=== PATIENT | male | born 1985 | race Hispanic/Latino ===

== ENCOUNTER 2017-07-04 16:19 | Emergency (ER) | payer OTHER ==
[2017-07-04] MEDS ORDERED: FLUORESCEIN OPHTH 1 MG STRIP As Ordered (17:44)
[2017-07-04] MEDS: FLUORESCEIN OPHTH 1 MG STRIP OS (17:45)
== END 2017-07-04 19:00 | disposition home or self-care (01) ==
LOC: M ED 16:19
DX: S05.12XA Contusion of eyeball and orbital tissues, left eye, initial encounter (principal); W27.8XXA Contact with other nonpowered hand tool, initial encounter; Y92.59 Other trade areas as the place of occurrence of the external cause; Y99.0 Civilian activity done for income or pay
CPT/HCPCS: 99283

== ENCOUNTER 2020-08-16 07:40 | Emergency (ER) | payer OTHER ==
[~2020-08-16] VITALS: Ht 154.9 cm; Wt 63.0 kg
[~2020-08-16 07:40] MED LIST: TOBRSUS41 OS
[2020-08-16 08:06] LABS: BASO # 0.1 10^3/uL (0.0-0.2); EOS # 0.2 10^3/uL (0.0-0.5); EOS % 2.6 % (0.0-3.0); HEMATOCRIT 46.6 % (42.0-52.0); HEMOGLOBIN 15.5 g/dl (13.5-17.5); LYMPH % 27.9 % (24.0-44.0); MEAN CORPUSCULAR HEMOGLOBIN 30.3 pg (27.0-33.0); MEAN CORPUSCULAR HGB CONC 33.3 g/dl (32.0-36.5); MEAN CORPUSCULAR VOLUME 91.2 fl (80.0-96.0); MONO # 0.6 10^3/uL (0.0-0.8); MONO % 8.2 % (2.0-8.0); NEUTROPHILS # 4.4 10^3/uL (1.5-8.5); NEUTROPHILS % 59.9 % (36.0-66.0); PLATELET COUNT, AUTOMATED 265 10^3/uL (150-450); RED BLOOD COUNT 5.11 10^6/uL (4.30-6.10); WHITE BLOOD COUNT 7.3 10^3/uL (4.0-10.0)
--- NOTE | 2020-08-16 08:14 | REP ---
INDICATION: CHEST PAIN COMPARISON: None. TECHNIQUE: Portable AP view of the chest FINDINGS: The mediastinum and cardiac silhouette are within normal limits for portable technique. The lung arora are clear without acute consolidation, effusion, or pneumothorax. Skeletal structures are intact. IMPRESSION: No acute cardiopulmonary process appreciated. <Electronically signed by Henry Tamez > 08/16/20 [id number]
[2020-08-16] MEDS ORDERED: GI COCKTAIL 50ML BTL(HYOSCYAMINE/MAALOX/LIDOCAINE VISCOUS)(1:3:1) PO ONE (08:15)
[2020-08-16 08:23] LABS: BLOOD UREA NITROGEN 16 MG/DL (7-18); CALCIUM LEVEL 8.9 MG/DL (8.5-10.1); CARBON DIOXIDE LEVEL 27 MEQ/L (21-32); CHLORIDE LEVEL 107 MEQ/L (98-107); CK-MB VALUE MASS < 1.0 NG/ML (<3.6); CPK CREATINE PHOSPHOKINASE 190 U/L (39-308); CREATININE FOR GFR 1.05 MG/DL (0.70-1.30); GLOMERULAR FILTRATION RATE > 60.0 (>60); GLUCOSE, FASTING 101 MG/DL (70-100); MB/CK RELATIVE INDEX 0.53 (< OR =4); POTASSIUM SERUM 3.9 MEQ/L (3.5-5.1); SODIUM LEVEL 138 MEQ/L (136-145); TROPONIN I < 0.02 NG/ML (< 0.10)
[2020-08-16 08:40] LABS: ALBUMIN 4.4 GM/DL (3.2-5.2); BILIRUBIN,DIRECT 0.1 MG/DL (0.0-0.2); BILIRUBIN,TOTAL 0.5 MG/DL (0.2-1.0); TOTAL PROTEIN 7.9 GM/DL (6.4-8.2)
[2020-08-16 09:07] LABS: RSV AMPLIFICATION NEGATIVE (NEGATIVE)
[2020-08-16] MEDS ORDERED: ISOVUE-370 76% 100ML VIAL As Ordered ONE (10:45)
[2020-08-16] MEDS ORDERED: KETOROLAC 30 MG/ML 1ML VIAL IV ONE (11:00)
--- NOTE | 2020-08-16 11:09 | REP ---
INDICATION: chest pain COMPARISON: None. TECHNIQUE: Axial contrast enhanced images from the thoracic inlet to the upper abdomen using pulmonary embolus technique with multiplanar re-formations. 75 ml Isovue 370 intravenous contrast material administered without complication. This CT examination was performed using the following dose reduction techniques: Automated exposure control, adjustment of mA and/or kv according to the patient's size, and use of iterative reconstruction technique. FINDINGS: Satisfactory enhancement of the pulmonary vasculature is achieved and no filling defects are identified to suggest pulmonary embolus. Further evaluation of the mediastinum demonstrates normal thoracic aorta, heart and pericardium. The bilateral lung arora are well aerated and clear without consolidation pleural effusion or pneumothorax. Tracheobronchial tree is patent. No nodule or mass lesion is identified. No adenopathy noted. Surrounding musculoskeletal structures intact IMPRESSION: No evidence for pulmonary embolus. No acute mediastinal or pleural parenchymal process. <Electronically signed by Henry Tamez > 08/16/20 [id number]
[2020-08-16 11:42] LABS: CK-MB VALUE MASS < 1.0 NG/ML (<3.6); CPK CREATINE PHOSPHOKINASE 160 U/L (39-308); MB/CK RELATIVE INDEX 0.62 (< OR =4); TROPONIN I < 0.02 NG/ML (< 0.10)
[2020-08-16 11:45] VITALS: BP 102/68
[2020-08-16] MEDS ORDERED: OMEP40CA97 PO (11:51)
[2020-08-16] MEDS ORDERED: SUCR1TA PO (11:51)
--- NOTE | 2020-08-16 21:00 | ECGEPIP ---
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
--- NOTE | 2020-08-16 21:05 | ECGEPIP ---
[facility] - ED Test Date: 2020-08-16 Pat Name: GAGAN CARTAGENA Department: Room: - Gender: Male [employer] Teacher: : 1985 Requested By: ANETA White Order Number: [id number] Reading MD: Laure Romeo Measurements Intervals [place] Rate: 52 P: 47 AR: 144 QRS: 83 QRSD: 94 T: 50 QT: 384 QTc: 357 Interpretive Statements Sinus bradycardia Nonspecific ST abnormality decreased rate 08/16/20 Electronically Signed on 08-16-2020 21:05:00 EDT by Laure Romeo
== END 2020-08-16 12:24 | disposition home or self-care (01) ==
LOC: M ED 07:40
DX: R07.89 Other chest pain (principal); R00.1 Bradycardia, unspecified; K21.9 Gastro-esophageal reflux disease without esophagitis; Z79.899 Other long term (current) drug therapy
CPT/HCPCS: 71045; 71275; 80048; 80076; 82550; 82553; 83690; 85025; 87631; 93005; 93041; 94760; 96374; 99285; J1885; Q9967

== ENCOUNTER 2020-08-22 18:04 | Emergency (ER) | payer OTHER ==
[~2020-08-22] VITALS: Ht 157.5 cm; Wt 62.2 kg
[~2020-08-22 18:04] MED LIST changes: +OMEP40CA4 PO; +SUCR1TA PO
[2020-08-22 19:15] LABS: BASO # 0.1 10^3/uL (0.0-0.2); EOS # 0.2 10^3/uL (0.0-0.5); EOS % 2.9 % (0.0-3.0); HEMATOCRIT 42.1 % (42.0-52.0); HEMOGLOBIN 14.5 g/dl (13.5-17.5); LYMPH # 2.6 10^3/uL (1.5-5.0); LYMPH % 33.3 % (24.0-44.0); MEAN CORPUSCULAR HGB CONC 34.4 g/dl (32.0-36.5); MONO # 0.8 10^3/uL (0.0-0.8); MONO % 10.1 % (2.0-8.0); NEUTROPHILS # 4.1 10^3/uL (1.5-8.5); NEUTROPHILS % 52.3 % (36.0-66.0); PLATELET COUNT, AUTOMATED 255 10^3/uL (150-450); RED BLOOD COUNT 4.68 10^6/uL (4.30-6.10); WHITE BLOOD COUNT 7.8 10^3/uL (4.0-10.0)
[2020-08-22 19:33] LABS: BLOOD UREA NITROGEN 13 MG/DL (7-18); CALCIUM LEVEL 9.1 MG/DL (8.5-10.1); CARBON DIOXIDE LEVEL 27 MEQ/L (21-32); CHLORIDE LEVEL 107 MEQ/L (98-107); CREATININE FOR GFR 1.01 MG/DL (0.70-1.30); GLOMERULAR FILTRATION RATE > 60.0 (>60); GLUCOSE, FASTING 96 MG/DL (70-100); SODIUM LEVEL 138 MEQ/L (136-145)
[2020-08-22 19:46] LABS: ERYTHROCYTE SEDIMENTATION RATE 3 mm/hr (0-15)
[2020-08-22] MEDS ORDERED: ISOVUE-370 76% 100ML VIAL As Ordered ONE (23:28)
[2020-08-22 23:50] LABS: INR 1.04; PARTIAL THROMBOPLASTIN TIME 31.3 SECONDS (24.2-38.5); PROTHROMBIN TIME 13.8 SECONDS (12.5-14.3)
[2020-08-22 23:53] LABS: D-DIMER QUANT 271.64 ng/ml (<500)
[2020-08-22 23:56] LABS: CK-MB VALUE MASS < 1.0 NG/ML (<3.6); CPK CREATINE PHOSPHOKINASE 165 U/L (39-308); MB/CK RELATIVE INDEX 0.61 (< OR =4); TROPONIN I < 0.02 NG/ML (< 0.10)
--- NOTE | 2020-08-23 00:35 | REPVR ---
PROCEDURE INFORMATION: Exam: CTA Right Lower Extremity With Contrast Exam date and time: 08/22/2020 10:56 PM Age: 34 years old Clinical indication: Pain; Other: Groin to calf; Additional info: Left groin pain to calf, pulses weak on left, prolonged refi TECHNIQUE: Imaging protocol: CTA images of the Right lower extremity with intravenous contrast using CT angiography protocol. 3D rendering (Not supervised by radiologist): MIP and/or 3D reconstructed images were created and reviewed. COMPARISON: No relevant prior studies available. FINDINGS: Right femoral/popliteal arteries: No occlusion or significant stenosis. Right infrapopliteal arteries: Unopacified infrapopliteal arterial tree likely secondary to technical limitations of the study. Bones/joints: No acute fracture. No dislocation. Soft tissues: Unremarkable. IMPRESSION: Unopacified infrapopliteal arterial tree likely secondary to technical limitations of the study. No acute findings otherwise. PROCEDURE INFORMATION: Exam: CTA Left Lower Extremity With Contrast Exam date and time: 08/22/2020 10:56 PM Age: 34 years old Clinical indication: Pain; Other: Groin to calf; Additional info: Left groin pain to calf, pulses weak on left, prolonged refi TECHNIQUE: Imaging protocol: Computed tomographic angiography of the Left lower extremity with intravenous contrast. 3D rendering (Not supervised by radiologist): MIP and/or 3D reconstructed images were created by the technologist. Radiation optimization: All CT scans at this facility use at least one of these dose optimization techniques: automated exposure control; mA and/or kV adjustment per patient size (includes targeted exams where dose is matched to clinical indication); or iterative reconstruction. Contrast material: ISO; Contrast volume: 100 ml; Contrast route: INTRAVENOUS (IV); COMPARISON: No relevant prior studies available. FINDINGS: Left femoral/popliteal arteries: No occlusion or significant stenosis. Left infrapopliteal arteries: Unopacified infrapopliteal arterial tree likely secondary to technical limitations of the study. Bones/joints: Status post open reduction internal fixation of healed distal fibular fracture. Soft tissues: Unremarkable. IMPRESSION: Unopacified infrapopliteal arterial tree likely secondary to technical limitations of the study. No acute findings otherwise. Electronically signed by: Burke Hughes On 08/23/2020 00:35:16 AM
--- NOTE | 2020-08-23 01:59 | REPVR ---
PROCEDURE INFORMATION: Exam: US Duplex Left Lower Extremity Veins, Limited Exam date and time: 08/23/2020 1:33 AM Age: 34 years old Clinical indication: Pain; Leg, upper; Left; Additional info: Left groin pain, cool foot, decr. Pulses, CT angio neg TECHNIQUE: Imaging protocol: Real-time Duplex ultrasound of the Left Lower Extremity with 2-D euceda scale, color Doppler flow and spectral waveform analysis with image documentation. Limited exam focused on the left lower extremity veins. COMPARISON: CT ANGIO ABDOMINAL ARTERIES 08/22/2020 11:33 PM FINDINGS: Left deep veins: Unremarkable. The common femoral, femoral, proximal profunda femoral and popliteal veins are patent without thrombus. Normal Doppler waveforms. Normal compressibility and/or augmentation response. Left superficial veins: Unremarkable. Saphenofemoral junction is patent without thrombus. Soft tissues: Unremarkable. IMPRESSION: No evidence of deep vein thrombosis. Electronically signed by: Burke Hughes On 08/23/2020 01:59:19 AM
[2020-08-23 02:29] VITALS: BP 109/82
== END 2020-08-23 02:36 | disposition home or self-care (01) ==
LOC: M ED 18:04
DX: M79.662 Pain in left lower leg (principal); R10.30 Lower abdominal pain, unspecified; R09.89 Other specified symptoms and signs involving the circulatory and respiratory systems; K21.9 Gastro-esophageal reflux disease without esophagitis; F17.220 Nicotine dependence, chewing tobacco, uncomplicated
CPT/HCPCS: 36415; 75635; 80048; 82550; 82553; 85025; 85379; 85610; 85652; 85730; 86140; 93971; 99284; Q9967

== ENCOUNTER → 2020-09-16 | Outpatient (CLI) | payer OTHER ==
--- NOTE | 2020-09-16 12:12 | REP ---
INDICATION: LOW BACK PAIN. COMPARISON: None. TECHNIQUE: Five views. FINDINGS: There is straightening of the normal lumbar lordosis. Lumbar vertebral body heights are preserved. Alignment is normal. Disc spaces are maintained. There is no evidence of spondylolysis or spondylolisthesis. Facets are unremarkable. Sacrum and SI joints are intact. Psoas margins are symmetric. IMPRESSION: Straightening. Otherwise normal lumbar spine radiographs. <Electronically signed by Remberto Wong > 09/16/20 [id number]
== END ==
LOC: M ADAMS 11:29
PROVIDERS: ATTEND Family Medicine
DX: M54.5 Low back pain (principal)

== ENCOUNTER → 2020-12-26 | Outpatient (CLI) | payer OTHER ==
--- NOTE | 2020-12-26 14:32 | REP ---
INDICATION: TESTICLE LUMP. COMPARISON: None. TECHNIQUE: Real-time sonographic evaluation of scrotum and contents performed. FINDINGS: The patient has had a right orchiectomy previously. The left testicle measures 5.6 x 2.8 x 3.2 cm. There is no evidence of testicular mass or torsion, blood flow is seen in the left testicle with duplex Doppler evaluation. There is a 5 mm cyst in the head of the left epididymis which appears to correspond to the palpable lump. IMPRESSION: Palpable lump appears to correspond to a 5 mm cyst in the head of the left epididymis. There is no left testicular mass. <Electronically signed by Ameya Cruz > 12/26/20 [id number]
== END ==
LOC: M RAD 11:25
PROVIDERS: ATTEND Family Medicine
DX: N50.3 Cyst of epididymis (principal)

== ENCOUNTER → 2022-04-10 | Outpatient (CLI) | payer OTHER | LOC: M RAD 12:38 | PROVIDERS: ATTEND Family Medicine | DX: L98.9 Disorder of the skin and subcutaneous tissue, unspecified (principal) ==